=== PATIENT | male | born 1955 ===

== ENCOUNTER 2017-07-12 10:49 | Day surgery (SDC) | payer OTHER ==
[2017-07-12] VITALS (10 sets, daily range): BP systolic 119–157; BP diastolic 60–84
[~2017-07-12] VITALS: Ht 170.2 cm; Wt 86.2 kg
--- NOTE | 2017-07-12 07:46 | Pre-Procedure Note/Attestation ---
Pre-Procedure Note/Attestation Complete Prior to Procedure Planned Procedure: right Procedure Narrative: knee arthroscopy, possible medial menisectomy Indications for Procedure Pre-Operative Diagnosis: right knee medial menisecus tear Attestation I attest that I discussed the nature of the procedure; its benefits; risks and complications; and alternatives (and the risks and benefits of such alternatives ), prior to the procedure, with the patient (or the patient's legal wine sales representative). I attest that, if there was a reasonable possibility of needing a blood transfusion, the patient (or the patient's legal wine sales representative) was given the [facility] standardized written summary, pursuant to the [employer]ave[employer] [place] Blood Safety Act ([place] Health and Safety Code # 1645, as amended). I attest that I re-evaluated the patient just prior to the surgery and that there has been no change in the patient's H&P, except as documented below: EDIN AVILES Jul 12, 2017 07:46
--- NOTE | 2017-07-12 07:48 | Operative Note - PDOC ---
Operative Note Operative Note Pre-op Diagnosis: right knee medial menisecus tear Procedure: right knee arthroscopic medial menisectomy Post-op Diagnosis: same as pre-op plus Operative Findings: consistent w/pre-op dx studies Specimen: none Complications: none Condition: stable Estimated Blood Loss: none Implant(s) used?: No EDIN AVILES Jul 12, 2017 07:48
[~2017-07-12 10:49] MED LIST: D5 1/2NS 1,000 ML IV SCH; HYDROmorphone 1mg/ml Carpuject SUBQ PRN; Norco 5mg/325mg tab ORAL PRN; Tylenol #3 tab (300mg/30mg) ORAL PRN; ceFAZolin 1gm in D5W 55ml IVP ONE; celeBREX 200mg Cap **SURGERY PATIENTS ONLY ORAL ONE; oxyCONTIN 20mg tab ORAL ONE
[2017-07-12] MEDS ORDERED: MULTIVITAMINS1 EAC2 ORAL (12:25)
[2017-07-12] MEDS ORDERED: Bupivacaine 0.25% Inj 30ml INJ ONE (13:47)
[2017-07-12] MEDS ORDERED: Kenalog-40 1ml Vial ONE (13:47)
[2017-07-12] MEDS ORDERED: Ketorolac 30mg Inj ONE ×2 (13:47→14:00)
[2017-07-12] MEDS ORDERED: EPINEPHrine 1mg/1ml Amp ONE (13:47)
[2017-07-12] MEDS ORDERED: Morphine Sulfate PF 10 ML ONE (13:47)
[2017-07-12] MEDS ORDERED: Lidocaine 1% 10mg/ml/Epi 0.005mg/ml 30ml vial INJ ONE (13:48)
[2017-07-12] MEDS ORDERED: Midazolam 2mg/2ml Inj ONE (14:00)
[2017-07-12] MEDS ORDERED: LR 1000ml ONE (14:00)
[2017-07-12] MEDS ORDERED: Propofol 200mg/20ml IV ONE (14:00)
[2017-07-12] MEDS ORDERED: Sterile Water Irrig 1000ml IRRIG ONE (14:00)
[2017-07-12] MEDS ORDERED: NS Irrig 4000ml IRRIG ONE ×2 (14:00→14:05)
[2017-07-12] MEDS ORDERED: fentaNYL 100 mcg/2 mL IV ONE (14:00)
[2017-07-12] MEDS ORDERED: Duramorph PF 10mg/10ml amp EPIDUR ONE (14:05)
[2017-07-12] MEDS ORDERED: LR 1000ml 1,000 ML IVLG SCH (14:52)
--- NOTE | 2017-07-12 14:52 | Anethesia Preoperative Eval ---
Anesthesia Pre-op PMH/ROS General Date of Evaluation: Jul 12, 2017 Time of Evaluation: 13:50 Anesthesiologist: Tisha ASA Score: ASA 2 Mallampati Score Class I : Soft palate, uvula, fauces, pillars visible Class II: Soft palate, uvula, fauces visible Class III: Soft palate, base of uvula visible Class IV: Only hard plate visible Mallampati Classification: Class II Surgeon: Won Diagnosis: R knee pain Surgical Procedure: R knee scope Anesthesia History: none Family History: no anesthesia problems Allergies: Coded Allergies: No Known Allergies (Unverified , 07/12/17) Medications: see eMAR Past Medical History Cardiovascular: Denies: HTN, CAD, ME, valve dz, arrhythmia, other Pulmonary: Denies: asthma, COPD, JOCELYN, other Gastrointestinal/Genitourinary: Reports: GERD - mild, Denies: CRI, ESRD, other Neurologic/Psychiatric: Denies: dementia, CVA, depression/anxiety, TIA, other Endocrine: Denies: DM, hypothyroidism, steroids, other HEENT: Denies: cataract (L), cataract (R), glaucoma, OHKAY OWINGEH (L), OHKAY OWINGEH (R), other Hematology/Immune: Denies: anemia, DVT, bleeding disorder, other Musculoskeletal/Integumentary: Denies: OA, RA, DJD, DDD, edema, other PMH Narrative: as above PSxH Narrative: septoplasty Anesthesia Pre-op Phys. Exam Physician Exam Last Vital Signs Date Time Temp Pulse Resp B/P (MAP) Pulse Ox O2 Delivery O2 Flow Rate FiO2 07/12/17 14:42 97.8 55 13 130/73 98 Simple Mask 6.0 Constitutional: NAD Neurologic: CN 2-12 intact Cardiovascular: RRR, no M/R/G Respiratory: CTA Gastrointestinal: S/NT/ND Airway Exam Mallampati Score: Class II MO: full Neck: flexible ROM: full Teeth: intact Dentures: no upper, no lower Anesthesia Pre-op A/P Labs see chart Studies Pre-op Studies: EKG - NSR Risk Assessment & Plan Assessment: ASA 2 Plan: GA with LMA Status Change Before Surgery: No Pre-Antibiotics Drug: Ancef 1 gr. Given Within 1 Hr of Incision: Yes Time Given: 14:18 RAMILA TOSCANO M.D. Jul 12, 2017 14:52
[2017-07-12] MEDS ORDERED: Meperidine 50mg/ml Inj(FOR RIGORS ONLY) IV PRN (15:00)
[2017-07-12] MEDS ORDERED: Ketorolac 30mg Inj IV PRN (15:00)
[2017-07-12] MEDS ORDERED: DiphenhydrAMINE 50mg/ml Inj IVP PRN (15:00)
[2017-07-12] MEDS ORDERED: Hydromorphone 0.5mg/0.5ml inj IVP PRN (15:00)
--- NOTE | 2017-07-12 15:09 | Immediate Post-Op Evaluation ---
Immediate Post-Op Evalulation Immediate Post-Op Evalulation Procedure: R knee arthroscopy Date of Evaluation: Jul 12, 2017 Time of Evaluation: 15:08 IV Fluids: 800 Blood Products: none Estimated Blood Loss: min Urinary Output: none Blood Pressure Systolic: 130 Blood Pressure Diastolic: 73 Pulse Rate: 56 Respiratory Rate: 20 O2 Sat by Pulse Oximetry: 99 Temperature (Fahrenheit): 97.5 Pain Score (1-10): 2 Nausea: No Vomiting: No Complications none Patient Status: reacts, patent, none Hydration Status: adequate RAMILA TOSCANO M.D. Jul 12, 2017 15:09
--- NOTE | 2017-07-12 15:57 | 48 Hour Post Anesthesia Eval ---
Post Anesthesia Evaluation Procedure: R knee arthroscopy Date of Evaluation: Jul 12, 2017 Time of Evaluation: 15:56 Blood Pressure Systolic: 142 0: 75 Pulse Rate: 68 Respiratory Rate: 20 Temperature (Fahrenheit): 97.5 O2 Sat by Pulse Oximetry: 99 Airway: patent Nausea: No Vomiting: No Pain Intensity: 2 Hydration Status: adequate Cardiopulmonary Status: stable Mental Status/LOC: patient returned to baseline Follow-up Care/Observations: n/a Post-Anesthesia Complications: none Follow-up care needed: ready to discharge RAMILA TOSCANO M.D. Jul 12, 2017 15:57
--- NOTE | 2017-07-13 01:00 | Operative Note - Dictated ---
DATE OF OPERATION: 07/12/2017 PREOPERATIVE DIAGNOSES: 1. Right knee medial meniscus tear. 2. Right knee chondral damage. POSTOPERATIVE DIAGNOSES: 1. Right knee posterior horn medial meniscus tear. 2. Grade 3, grade 4 chondral damage of the medial femoral condyle. 3. Hypertrophic synovial tissue. PROCEDURE: 1. Right knee arthroscopic partial medial meniscectomy. 2. Gentle chondroplasty of the right knee medial compartment. 3. Synovectomy, lateral patellofemoral compartment. SURGEON: Adiel Upton M.D. ANESTHESIA: General. INDICATION FOR PROCEDURE: The patient is a pleasant gentleman, who has had right knee pain. He had an MRI, which showed some arthritis, but he also had evidence of meniscal tear. Given his age and activity levels, he elected to undergo right knee arthroscopic medial meniscectomy. Risks, limitations, expectations, and complications of the procedure were discussed in detail including continued pain, need for future surgery, risk of anesthesia, medical complications, particularly in light of his underlying chondral damage, the fact that this pain may still be there after the surgery. All questions addressed. DESCRIPTION OF PROCEDURE: After informed consent was obtained, the patient was brought into the operating room and placed supine under general monitored anesthesia control. Tourniquet was applied to the right proximal thigh. Right leg was prepped and draped in a sterile manner. Time-out was performed. A 0.25% Marcaine plain was injected into the right knee, plus injected with 1% lidocaine with epinephrine. Esmarch was used to exsanguinate the extremity. Inferolateral stab incision was then made. Trocar was introduced into the knee joint. There was no significant chondral damage of the patellofemoral compartment. There was hypertrophic synovial tissue in the trapezial space as well as what appeared to be medial plica. The medial compartment was entered and medial working portal was established. There was degenerative tear of the posterior horn of the medial meniscus where there was significant grade 3 and grade 4 chondral damage in the posterior femoral condyle. A partial meniscectomy using a shaver was performed. Gentle chondroplasty of the chondral flaps was also performed. Once that was completed, the ACL was probed and noted to be intact. Lateral compartment was entered, free of any meniscal chondral damage. The camera was repositioned in the patellofemoral compartment. Synovectomy was completed. Once that was done, the instruments were removed. Portal sites were closed using 3-0 Monocryl suture. Steri-Strips and a sterile dressing were applied. Intraarticular injection containing 0.25% Marcaine and epinephrine, 30 mg of Toradol, 40 mg of Kenalog, 5 mL of Duramorph was injected into the right knee. ESTIMATED BLOOD LOSS: None. COMPLICATIONS: None. SPECIMENS: None. IMPLANTS: None. Adiel Upton M.D. DR: Paul JOB#: [id number] CC:
== END 2017-07-12 16:35 | disposition home or self-care (01) ==
LOC: SUR 10:49
DX: S83.241A Other tear of medial meniscus, current injury, right knee, initial encounter (principal); M67.261 Synovial hypertrophy, not elsewhere classified, right lower leg; X58.XXXA Exposure to other specified factors, initial encounter; Y93.9 Activity, unspecified; Y92.9 Unspecified place or not applicable; K21.9 Gastro-esophageal reflux disease without esophagitis; Z85.828 Personal history of other malignant neoplasm of skin
CPT/HCPCS: 29881; J0690; J1885; J2250; J2274; J2704; J3010; J3301; J3490; J7120; 94003; 94150